=== PATIENT | female | born 1995 | race Caucasian/White ===

== ENCOUNTER 2016-05-27 10:14 | Emergency (ER) | payer OTHER ==
--- NOTE | 2016-05-27 11:10 | EDPHY ---
H & P Stated Complaint: SCATTERED SKIN LESIONS/PAINFUL /LAST 3 WEEKS Time Seen by Provider: 05/27/16 11:10 HPI/ROS: CHIEF COMPLAINT: skin lesions HISTORY OF PRESENT ILLNESS: 20-year-old immunocompetent female with no concurrent medication use complaining of new onset of tender lesions which do not follow a dermatomal distribution , located on her face, her ear, her inferior buttock. Nonpruritic. Non weeping. Denies: Ocular injection irritation, urinary or GI abnormality, melena, hematochezia, gingival bleeding , epistaxis, genitalia lesions. PRIMARY CARE PROVIDER: [facility] REVIEW OF SYSTEMS: A ten point review of systems was performed and is negative with the exception of the items mentioned in the HPI PAST MEDICAL & SURGICAL HISTORY: No pertinent medical or surgical history SOCIAL HISTORY: Student PHYSICAL EXAM (Prior to examination, patient consented to physical exam, hands were washed and my usual and customary physical exam procedures followed) 1) GENERAL: Well-developed, well-nourished, alert and oriented. Appears nontoxic 2) HEAD: Normocephalic, atraumatic 3) HEENT: Pupils equal, round, reactive to light bilaterally. Sclera anicteric. Nasopharynx, oropharynx, clear, no lesions. Ears bilaterally with normal tympanic membranes. The patient's forehead and bilateral ears she has multiple for regular, tender lesions. Nonvesicular. Non weeping. Non blistering. 4) NECK: Full range of motion, no meningeal signs. 5) LUNGS: Clear auscultation bilaterally 6) HEART: Regular rate and rhythm 7) ABDOMEN: No guarding, no rebound, no focal tenderness, 8) MUSCULOSKELETAL: Moving all extremities, no focal areas of tenderness, no obvious trauma. No peripheral edema or discoloration. 9) BACK: No CVA tenderness, no midline vertebral tenderness, no fluctuance, no step-off, no obvious trauma, no visual or palpable abnormality. 10) SKIN: Patient has similar for regular lesions on the bilateral inferior buttock region. There tender.. 11) Psychiatric: Patient is oriented X 3, there is no agitation. DIFFERENTIAL DIAGNOSIS: [in no particular include but limited to cellulitis, impetigo, varicella, zoster, malignancy - Personal History LMP (Females 10-55): 8-14 Days Ago Current Tetanus/Diphtheria Vaccine: Yes - Medical/Surgical History Hx Asthma: No Hx Chronic Respiratory Disease: No Hx Diabetes: No Hx Cardiac Disease: No Hx Renal Disease: No Hx Cirrhosis: No Hx Alcoholism: No Hx HIV/AIDS: No Hx Splenectomy or Spleen Trauma: No Other PMH: R WRIST FX/SURGERY Constitutional: Initial Vital Signs Temperature (C) 36.5 C 05/27/16 10:17 Heart Rate 66 05/27/16 10:17 Respiratory Rate 16 05/27/16 10:17 Blood Pressure 137/77 H 05/27/16 10:17 O2 Sat (%) 97 05/27/16 10:17 O2 Delivery Mode Room Air Allergies/Adverse Reactions: No Known Allergies Allergy (Unverified 05/27/16 10:17) Home Medications: Medication Instructions Recorded Cephalexin [Keflex] 500 mg PO QID 10 Days 05/27/16 Medical Decision Making ED Course/Re-evaluation: This patient has multiple for regular lesions which do not followed dermatomal distribution. I do not think the lesions are consistent with zoster, varicella , Landeros-Puma, HSP. She has no history of chronic cutaneous skin infections or MRSA. I think a trial of Keflex is appropriate at this time. I also recommended follow-up with dermatology . Malignancy not ruled out. Further disease pathology not ruled out. Discussed with patient that this may be early cutaneous manifestation of other pathology and therefore stressed the importance of close follow-up. Usual and customary dermatologic precautions and instructions provided. Departure - Departure Disposition: Home, Routine, Self-Care Clinical Impression: Furuncle Condition: Good Instructions: Furunculosis and Carbunculosis (ED) Additional Instructions: return to the ER if you develop fevers, spreading of skin lesions, lesions to your mouth, eyes tenderness, urinary abnormality or any other symptoms that concern you. Referrals: [facility] [Provider Group] - 5-7 days, call for appt. Neo Oakley MD [Medical Doctor] - 5-7 days, call for appt. Prescriptions: Cephalexin [Keflex] 500 mg PO QID 10 Days
[2016-05-27 12:09] VITALS: BP 121/70; PULSE 54; RESP 18; TEMP 98.6; O2SAT 94
== END 2016-05-27 11:57 | disposition home or self-care (01) ==
DX: L02.02 Furuncle of face (principal); H60.03 Abscess of external ear, bilateral; L02.32 Furuncle of buttock